=== PATIENT | female | born 1950 | race Two or more races ===

== ENCOUNTER 2016-11-14 15:52 | Emergency (ER) | payer MEDICARE, BC ==
[~2016-11-14] VITALS: Ht 172.7 cm; Wt 65.3 kg
--- NOTE | 2016-11-14 16:09 | NUR ---
MD ZIEGLER AT BEDSIDE
--- NOTE | 2016-11-14 16:09 | NUR ---
BIBRA FOR NEAR SYNCOPAL EPISODE. PT RECEIVED AAO4. APPEARS IN NO APPARENT DISTRESS. RESPIRATION EVEN AND UNLABORED. PATIENT APPEARS IN NO APPARENT DISTRESS. CO RIGHT SHOULDER PAIN, 7/10, SHARP,NON RADIATING. NON DIAPHORETIC. PT AFEBRILE. VSS
[2016-11-14] MEDS ORDERED: ONDANSETRON HCL/PF 4 MG/2 ML VIAL ONE (16:15)
[2016-11-14] MEDS ORDERED: MORPHINE SULFATE INJ 2 MG/ML DISP.SYRIN ONE (16:15)
--- NOTE | 2016-11-14 16:19 | NUR ---
DR BO KENNEDY PAGED AT [phone] THRU [place],ANSWERING SERVICE
--- NOTE | 2016-11-14 16:22 | NUR ---
PT MEDICATED ORDERED
[2016-11-14] MEDS ORDERED: MORPHINE SULFATE INJ 2 MG/ML DISP.SYRIN IV ONE (16:30)
[2016-11-14] MEDS ORDERED: ONDANSETRON HCL/PF 4 MG/2 ML VIAL IVP ONE (16:30)
--- NOTE | 2016-11-14 16:37 | NUR ---
DR ZIEGLER ON THE PHONE WITH DR KENNEDY
[2016-11-14] MEDS ORDERED: MYCO250C PO (16:48)
[2016-11-14] MEDS ORDERED: TACR1CAP PO (16:48)
[2016-11-14] MEDS ORDERED: MULT-24 PO (16:48)
[2016-11-14] MEDS ORDERED: GLUC1500 PO (16:48)
[2016-11-14] MEDS ORDERED: CHOL100044 PO (16:48)
[2016-11-14] MEDS ORDERED: UBID100C13 PO (16:48)
[2016-11-14] MEDS ORDERED: MAGN400T26 PO (16:48)
[2016-11-14] MEDS ORDERED: SULF1TAB48 PO (16:48)
[2016-11-14] MEDS ORDERED: CALC500T52 PO (16:48)
[2016-11-14] MEDS ORDERED: ASPI81TA2 PO (16:48)
[2016-11-14] MEDS ORDERED: CHON400C PO (16:48)
[2016-11-14] MEDS ORDERED: VALG450T PO (16:48)
[2016-11-14 16:52] LABS: BASOPHILS % (AUTO) 0.1 % (0.0-2.0); EOSINOPHILS # (AUTO) 0.1 /CMM (0.0-0.7); EOSINOPHILS % (AUTO) 0.5 % (0.0-6.0); HEMATOCRIT 38 % (33-45); HEMOGLOBIN 12.8 g/dL (11.5-14.8); LYMPHOCYTES # (AUTO) 1.4 /CMM (0.8-4.8); LYMPHOCYTES % (AUTO) 12.6 % (20.0-44.0); MEAN CORPUSCULAR HEMOGLOBIN 30 PG (26.0-33.0); MEAN CORPUSCULAR HGB CONC 33 g/dl (31.0-36.0); MEAN CORPUSCULAR VOLUME 88 fL (82-100); MONOCYTES # (AUTO) 0.7 /CMM (0.1-1.30); MONOCYTES % (AUTO) 6.6 % (2.0-12.0); NEUTROPHILS # (AUTO) 9.1 /CMM (1.8-8.9); NEUTROPHILS % (AUTO) 80.2 % (43.0-81.0); PLATELET COUNT (AUTO) 181 /CMM (150-450); RDW COEFFICIENT OF VARIATION 13.5 (11.5-15.0); RED BLOOD CELL COUNT(AUTO) 4.35 MIL/uL (4.0-5.2); WHITE BLOOD COUNT (AUTO) 11.4 K/uL (4.3-11.0)
[2016-11-14] MEDS ORDERED: IV NS 0.9% 1,000 ML IV ONE (17:00)
[2016-11-14 17:10] LABS: CALCIUM, SERUM 9.1 mg/dL (8.5-10.1); CARBON DIOXIDE 26 mmol/L (21-32); CHLORIDE 105 mmol/L (98-107); GLUCOSE 122 mg/dL (74-106); POTASSIUM 3.5 mmol/L (3.5-5.1); SODIUM SERUM 142 mmol/L (136-145); UREA NITROGEN, BLOOD 22 mg/dL (7-18)
[2016-11-14 17:13] LABS: TROPONIN I < 0.017 ng/mL (0.00-0.056)
[2016-11-14 17:17] LABS: ALANINE AMINOTRANSFERASE 26 U/L (12-78); ALBUMIN 3.4 g/dL (3.4-5.0); ALKALINE PHOSPHATASE 65 U/L (46-116); ASPARTATE AMINOTRANSFERASE 18 U/L (15-37); BILIRUBIN,DIRECT 0.1 mg/dL (0.0-0.2); BILIRUBIN,TOTAL 0.5 mg/dL (0.2-1.0); TOTAL PROTEIN, SERUM 7.1 g/dL (6.4-8.2)
[2016-11-14] MEDS ORDERED: IOHEXOL-350 100 ML VIAL IV ONE (17:18)
[2016-11-14] MEDS ORDERED: IV NS 0.9% 250 ML IV ONE (17:18)
[2016-11-14] MEDS ORDERED: CT SWABBABLE VALVE TRANS SET 1 EA INFUS.SET MC ONE (17:18)
--- NOTE | 2016-11-14 17:21 | NUR ---
pt was taken to [facility] angio
[2016-11-14 17:56] LABS: INR 1.04 (0.87-1.13); PROTHROMBIN TIME 11.1 SECS (9.5-12.7)
[2016-11-14 18:14] VITALS: BP 114/68
== END 2016-11-14 18:16 | disposition home or self-care (01) ==
LOC: ER 15:55
DX: R55 Syncope and collapse (principal); M25.511 Pain in right shoulder
CPT/HCPCS: 36415; 71010; 71275; 80048; 80076; 84484; 85025; 85730; 93005; 96361; 96374; 96375; 99285; A4606; J2270; J2405; J7030; J7050; Q9967; Z7610

== ENCOUNTER 2017-07-10 21:54 | Emergency (ER) | payer MEDICARE, BC ==
[~2017-07-10] VITALS: Ht 172.7 cm; Wt 65.3 kg
[~2017-07-10 21:54] MED LIST: ASPI-1169 PO; CALC500T52 PO; CHOL100044 PO; CHON400C PO; GLUC15006 PO; MAGN400T26 PO; MULT-24 PO; MYCO250C PO; SULF1TAB48 PO; TACR1CAP PO; UBID100C13 PO; VALG450T PO
[2017-07-10] MEDS ORDERED: IV NS 0.9% 1,000 ML BAG IV ONE (22:30)
[2017-07-10 23:00] LABS: BASOPHILS # (AUTO) 0.1 /CMM (0.0-0.2); BASOPHILS % (AUTO) 0.6 % (0.0-2.0); EOSINOPHILS % (AUTO) 1.4 % (0.0-6.0); HEMATOCRIT 33 % (33-45); HEMOGLOBIN 11.1 g/dL (11.5-14.8); LYMPHOCYTES # (AUTO) 2.8 /CMM (0.8-4.8); LYMPHOCYTES % (AUTO) 24.6 % (20.0-44.0); MEAN CORPUSCULAR HGB CONC 34 g/dl (31.0-36.0); MEAN CORPUSCULAR VOLUME 88 fL (82-100); MONOCYTES # (AUTO) 0.8 /CMM (0.1-1.30); MONOCYTES % (AUTO) 7.3 % (2.0-12.0); NEUTROPHILS # (AUTO) 7.6 /CMM (1.8-8.9); NEUTROPHILS % (AUTO) 66.1 % (43.0-81.0); PLATELET COUNT (AUTO) 270 /CMM (150-450); RDW COEFFICIENT OF VARIATION 13.5 (11.5-15.0); RED BLOOD CELL COUNT(AUTO) 3.77 MIL/uL (4.0-5.2); WHITE BLOOD COUNT (AUTO) 11.5 K/uL (4.3-11.0)
[2017-07-10 23:14] LABS: INR 1.05 (0.87-1.13)
[2017-07-10 23:17] LABS: ALANINE AMINOTRANSFERASE 19 U/L (12-78); ALBUMIN 2.5 g/dL (3.4-5.0); ALKALINE PHOSPHATASE 80 U/L (46-116); ASPARTATE AMINOTRANSFERASE 15 U/L (15-37); BILIRUBIN,DIRECT 0.1 mg/dL (0.0-0.2); BILIRUBIN,TOTAL 0.2 mg/dL (0.2-1.0); CALCIUM, SERUM 8.3 mg/dL (8.5-10.1); CARBON DIOXIDE 22 mmol/L (21-32); CHLORIDE 108 mmol/L (98-107); GLUCOSE 110 mg/dL (74-106); POTASSIUM 3.2 mmol/L (3.5-5.1); SODIUM SERUM 141 mmol/L (136-145); UREA NITROGEN, BLOOD 23 mg/dL (7-18)
[2017-07-10 23:19] LABS: TROPONIN I < 0.017 ng/mL (0.00-0.056)
[2017-07-10 23:26] LABS: CREATININE 0.9 mg/dL (0.6-1.3)
[2017-07-10 23:40] VITALS: BP 115/62
== END 2017-07-10 23:41 | disposition home or self-care (01) ==
LOC: ER 21:57
DX: R55 Syncope and collapse (principal); F41.9 Anxiety disorder, unspecified; F19.10 Other psychoactive substance abuse, uncomplicated; Z94.2 Lung transplant status; Z79.82 Long term (current) use of aspirin
CPT/HCPCS: 36415; 70450-TC; 71045-TC; 80048-TC; 80076-TC; 80305; 82962-TC; 84484-TC; 85025-TC; 85730-TC; A4606; G0480; J7030; Z7610